=== PATIENT | male | born 1985 | race American Indian/Alaskan Native ===

== ENCOUNTER 2019-06-12 17:19 | Emergency (ER) | payer SELFPAY ==
[2019-06-12 18:14] LABS: Mucus,Urine 3+ /HPF
[2019-06-12 18:23] LABS: Bilirubin,Urine Negative (Negative); Blood,Urine Large (Negative); Color,Urine Brown (Yellow)
[2019-06-12 18:24] LABS: Protein,Urine >500 mg/dL (Negative)
[2019-06-12 19:16] VITALS: BP 128/88
== END 2019-06-12 20:15 | disposition left against medical advice (07) ==
LOC: EDBD → ED 17:19
DX: R39.198 Other difficulties with micturition (principal); Z53.21 Procedure and treatment not carried out due to patient leaving prior to being seen by health care provider
CPT/HCPCS: 81001